=== PATIENT | male | born 1940 | race Caucasian/White ===

== ENCOUNTER → 2017-12-31 | Day surgery (SDC) | payer MEDICARE, MEDICAID ==
[~2017-12-31] MED LIST: Lidocaine 1% PF 5 ML VIAL ONE; Ondansetron ODT 8 MG TAB ONE; PHENYLEPHRINE-NS 100 MCG/ML 10 ML SYRINGE ONE; PROPOFOL 200 MG/20 ML VIAL ONE; Succinylcholine Chloride 20 MG/ML 10 ml SYRINGE FS ONE; Water For Injection,Sterile 20 ML ONE
--- NOTE | 2017-12-31 16:48 | RAD ---
NECK SOFT TISSUE: 12/31/17 HISTORY: Food impaction. COMPARISON: None. FINDINGS: No radiopaque foreign object is appreciated. Degenerative changes of the cervical spine. No acute fra cture or malalignment. Multiple missing teeth. IMPRESSION: No acute abnormality. POS: RODRIGUEZ
--- NOTE | 2017-12-31 22:24 | CON ---
DATE OF CONSULTATION: 12/31/2017 REASON FOR CONSULTATION: Suspected food bolus obstruction of the esophagus. HISTORY OF PRESENT ILLNESS: Mr. Chavira was apparently eating last night at the [facility] where he lives and he got food stuck, he thinks it is squash. He is unable to handle secretions last night, today and was brought to the hospital. In the emergency room, he was given some soda and he would hold it on just for a minute or two and then would come right back up. He continues to cou gh up secretions and spit, it is like cough. He denies any overt pain right now. He states he has h ad problems with dysphagia in the past, but he has not ever had food get stuck. Presently, he denies any pain or shortness of breath, denies pain in his neck or chest. 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 There is a questionable history of bipolar disorder and depression. PAST SURGICAL HISTORY: Includes tonsillectomy, left knee replacement. He also has had an EGD with Ivy Vazquez for dysphagia in 2017, at which time he had a hiatal hernia, empiric dilatation at that time with no effect. Cerebellar shunt in 2001. FAMILY HISTORY: Father with cancer of unknown etiology. MEDICATIONS: Tylenol, vitamin D, Prilosec, VESIcare, Synthroid, metoprolol, desmopressin, multivitam in, pravastatin, Depakote, Zoloft, Remeron and Imodium p.r.n. SOCIAL HISTORY: He lives in [place] in assisted living. His primary physician is Dr. Meneses. ALLERGIES: None known. REVIEW OF SYSTEMS: Negative for fever or chills, shortness of breath, chest pain, dyspnea on exertio n. PHYSICAL EXAMINATION: GENERAL: Mr. Chavira is a pleasant gentleman, in no distress, resting comfortably in stretcher. VITAL SIGNS: Blood pressure 135/70, pulse 97, respirations 16, temperature 97, O2 sat 94%. HEENT: He has slight cough. He has got dentures and that are kind of coming out. Within normal slater its. NECK: Supple. LUNGS: Clear. HEART: Regular rate and rhythm without clicks or murmurs. ABDOMEN: Soft and nontender. Neck, soft tissue film was normal except for degenerative changes and multiple missing teeth. LABORATORY: None. ASSESSMENT: 1. Suspected food bolus of the esophagus with history of dysphagia with prior EGD last year in [facility] with a hiatal hernia, but no stricture. 2. Poor dentition with dentures ill-fitting, this may be part of the reason for his dysphagia. PLAN: EGD, likely with general anesthesia to prevent aspiration and removal of foreign body.
--- NOTE | 2018-01-01 06:51 | OP ---
DATE OF PROCEDURE: 12/31/2017 PROCEDURE PERFORMED: EGD with removal of foreign body. PREPROCEDURE DIAGNOSES: Dysphagia and regurgitation. ANESTHESIA: General endotracheal anesthesia. POSTPROCEDURE DIAGNOSES: 1. Food filled esophagus, proximal half with squash, GE junction with a large meat bolus, all remove d. 2. Severe ulcerations at the distal esophagus, GE junction and hiatal hernia. No signs of perforati on, mild superficial mucosal necrosis. 3. Large hiatal hernia. 4. Z-line appears to be probably in the mid esophagus at about 25 cm, proximal gastric folds at abou t 32 cm, hiatus is about 40 cm. This is suspicious for Shen's. Due to the inflamed nature of the esophagus, biopsies were not obtained. 5. The patient has a permanent denture plate, that is affixed to a tooth, but the remainder was loos e and this is probably the reason he is not chewing his food well. RECOMMENDATIONS: 1. The patient has been on pureed diet with Ensure 3 times a day until he sees a dentist. I would c all the longterm and asked them to get a dentist to see him to fix this. 2. He is to be on a PPI b.i.d. 3. He needs to follow up with Dr. Vazquez, his primary environmental remediation specialist in 1-2 weeks. He may ne ed a repeat endoscopy to evaluate for Shen's and follow that. PROCEDURE IN DETAIL: After the patient was informed of the risks, benefits, possible complications o f endoscopy including perforation, bleeding, reactions to medication and aspiration, informed consent was obtained.. I also discussed the case with his niece whose family members responsible for him, Robert Railissy. She states that he signed his own consent. Once he was comfortably intubated and airway was secured, a bite block was placed in incisural orifice. esophagus. The proximal esophagus was full of material, which was yellow and consistent with a history getting squash stuck. Th is was removed piecemeal of about 30 minutes until we came to the distal esophagus where a large meat bolus was found at the GE junction. This was removed piecemeal and then grabbed with a snare and re moved. There was some pressure necrosis in distal esophagus, thesuperficial mucosa, no signs of perf oration. There was no bleeding, there was a hiatus hernia at 40 cm. The stomach, pylorus and duoden um were normal. There was proximal gastric folds at 30 cm. The Z-line was irregular and at 25 cm, c onsistent with Shen's esophagus. Biopsies were not obtained secondary to moderate amount of infla mmation. The scope was removed. The patient tolerated the procedure well with no complications. Instructions were conveyed to the patient's nurse at his longterm.
== END ==
LOC: ERS 15:20 → SDC 17:54 → ERS 17:55
PROVIDERS: ATTEND Internal Medicine Gastroenterology
PROC: 0DC58ZZ Extirpation of Matter from Esophagus, Via Natural or Artificial Opening Endoscopic (ICD-10-PCS; principal; 2017-12-31)
DX: T18.128A Food in esophagus causing other injury, initial encounter (principal); K22.10 Ulcer of esophagus without bleeding; K44.9 Diaphragmatic hernia without obstruction or gangrene; K21.9 Gastro-esophageal reflux disease without esophagitis; K08.59 Other unsatisfactory restoration of tooth; E78.5 Hyperlipidemia, unspecified; E23.2 Diabetes insipidus; E03.9 Hypothyroidism, unspecified; I10 Essential (primary) hypertension; Z79.899 Other long term (current) drug therapy; Z98.890 Other specified postprocedural states
CPT/HCPCS: 43247; 70360; J1610; J2001; J2704

== ENCOUNTER 2018-01-07 13:13 | Emergency (ER) | payer MEDICARE, MEDICAID | END 2018-01-07 15:18 | disposition home or self-care (01) | LOC: ERS 13:13 | DX: K22.2 Esophageal obstruction (principal); K21.9 Gastro-esophageal reflux disease without esophagitis; E03.9 Hypothyroidism, unspecified; E78.5 Hyperlipidemia, unspecified; I10 Essential (primary) hypertension; F31.9 Bipolar disorder, unspecified; Z79.899 Other long term (current) drug therapy | CPT/HCPCS: 96374; 99284; J1610 ==

== ENCOUNTER 2018-02-03 10:31 | Day surgery (SDC) | payer MEDICARE, MEDICAID ==
[2018-02-02 13:04] VITALS: BMI 27.2
--- NOTE | 2018-02-03 02:14 | HP ---
SHORT STAY HISTORY AND PHYSICAL DATE OF ADMISSION: 02/03/2018 HISTORY OF PRESENT ILLNESS: This is a 77-year-old male who comes for an EGD. The patient was seen dysphagia, underwent EGD and empiric dilation. The EGD, there was no esophageal stric ture seen. However, he underwent empiric dilation with Rockwell dilator. The patient was brought to the ER on 12/31/2017 because of food bolus impaction. Dr. Amador saw the patient and underwent EGD a nd disimpaction of food material. The patient advised to have an EGD because of recent food impactio n. The patient will come for an EGD because of above reason. ALLERGIES: ASPIRIN. MEDICAL ILLNESSES: 1. Hypothyroidism. 2. Hypertension. 3. Hyperlipidemia. 4. Acid reflux. 5. Depression. PHYSICAL EXAMINATION: GENERAL: He is a fragile looking, elderly male, appears very comfortable. VITAL SIGNS: Pulse is 70, blood pressure 130/70. HEENT: Conjunctivae clear. CARDIOVASCULAR SYSTEM: First and second heart sounds are normal. LUNGS: Clear to auscultation. ABDOMEN: Soft to palpate. No organomegaly. No tenderness. No masses. ADMITTING DIAGNOSIS: A 77-year-old male with recent food impaction. The patient comes for an EGD.
--- NOTE | 2018-02-03 12:55 | OP ---
DATE OF PROCEDURE: 02/03/2018 SURGEON: Bobby Vazquez M.D. OPERATIVE PROCEDURE: 1. Esophagogastroduodenoscopy. 2. Serial dilation with Rockwell sizes 48 and 50-Pakistani in diameter. PREOPERATIVE DIAGNOSES: Dysphagia, recent foreign body impaction. POSTOPERATIVE DIAGNOSES: 1. Normal esophageal mucosa and no esophagitis seen. 2. Hiatus hernia. 3. No esophageal stricture seen, although he has had recent food impaction. 4. Small ulcer in the gastric antrum. PROCEDURE IN DETAIL: The patient was placed on his left lateral position and was given sedation by [facility]. A Pentax video gastroscope under direct vision was passed down the orophar ynx, past the GE junction, into the stomach and subsequently into descending duodenum. He had fairly good amount of mucous, this was suctioned. He also had some mucus in the esophagus, upper esophagus . This was suctioned. The patient has recent food impaction, at endoscopy the mucosa appears normal and also I do not see any definite stricture. The scope advances into the esophagus, no lesion seen . He has a hiatus hernia. Retroflexion failed to show any pathology in the fundus or cardia. The g astric body, no pathology seen. He has small gastric ulcers over the gastric antrum. The duodenal b ulb, descending duodenum, no pathology seen. The scope removed. Because of history of recent food i mpaction a size 48 Pakistani Rockwell dilator passed down with no resistance. Subsequently, a 50 Pakistani was passed down with no resistance. The patient rescoped again and he had fairly large amount of muc us in the throat, this was suctioned. No complications noted. DISCHARGE PLANNING: This is a 77-year-old male with recent food impaction who came in for an EGD. The EGD showed hiatus hernia, but no definite narrowing seen. DISCHARGE RECOMMENDATIONS: 1. Resume medicines as before. 2. Diet as tolerated. 3. He will come back to the clinic in 2 weeks.
[2018-02-03] MEDS ORDERED: PROPOFOL 200 MG/20 ML VIAL ONE (13:39)
[2018-02-03] MEDS ORDERED: Lidocaine 1% PF 5 ML VIAL ONE (13:39)
== END 2018-02-03 14:00 | disposition home or self-care (01) ==
LOC: EEVIPCON → SDC 10:31
PROVIDERS: ATTEND Internal Medicine Gastroenterology
PROC: 0DJ08ZZ Inspection of Upper Intestinal Tract, Via Natural or Artificial Opening Endoscopic (ICD-10-PCS; principal; 2018-02-03)
PROC: 0D737ZZ Dilation of Lower Esophagus, Via Natural or Artificial Opening (ICD-10-PCS; 2018-02-03)
DX: K25.9 Gastric ulcer, unspecified as acute or chronic, without hemorrhage or perforation (principal); K44.9 Diaphragmatic hernia without obstruction or gangrene; E03.9 Hypothyroidism, unspecified; I10 Essential (primary) hypertension; E78.5 Hyperlipidemia, unspecified; K21.9 Gastro-esophageal reflux disease without esophagitis; F32.9 Major depressive disorder, single episode, unspecified; Z88.6 Allergy status to analgesic agent

== ENCOUNTER 2021-04-22 05:54 | Inpatient (IN) | payer MEDICARE, MEDICAID ==
[2021-04-22] MEDS ORDERED: Pantoprazole 40 MG VIAL ONE (06:37)
[2021-04-22 06:38] LABS: INR-International Normal Ratio 1.1; Prothrombin Time 14.3 sec (12.0-14.7)
[2021-04-22 06:39] LABS: PTT 30.1 sec (22.9-36.1)
[2021-04-22 06:44] LABS: #Eosinphils 0.3 thou/uL (0.0-0.7); #Lymphocytes 2.3 thou/uL (1.20-3.40); #Monocytes 1.1 thou/uL (0.11-0.59); #Neutrophils 6.1 thou/uL (1.40-6.50); %Basophils 0.3 % (0.0-1.0); %Eosinophils 3.1 % (0.0-10.0); %Lymphocytes 23.7 % (21.0-51.0); %Monocytes 10.8 % (0.0-10.0); %Neutrophils 62.2 % (42.0-75.0); ALT (SGPT) 12 U/L (8-55); AST (SGOT) 21 U/L (5-34); Albumin 3.1 g/dL (3.4-4.8); Alkaline Phosphatase 86 U/L (40-110); Anion Gap 17 mmol/L (10-20); BUN (Urea Nitrogen) 56 mg/dL (8.4-25.7); Bilirubin, Total 0.3 mg/dL (0.2-1.2); Calc. Creatinine Clearance 0 mL/min (70-130); Calcium 9.7 mg/dL (7.8-10.44); Carbon Dioxide 22 mmol/L (23-31); Chloride 116 mmol/L (98-107); Globulin 4.2 g/dL (2.4-3.5); Glucose 99 mg/dL (83-110); Hemoglobin 10.6 g/dL (14.0-18.0); Mean Corpuscular HGB CONC 31.5 g/dL (32.0-36.0); Mean Corpuscular Hemoglobin 33.2 pg (27.0-31.0); Mean Platelet Volume 7.8 fL (7.4-10.4); Platelet Count 138 thou/uL (130-400); Potassium 4.6 mmol/L (3.5-5.1); Protein, Total 7.3 g/dL (5.8-8.1); RBC Distribution Width 13.3 % (11.5-14.5); Red Blood Cell (RBC) Count 3.19 mill/uL (4.70-6.10); Sodium 150 mmol/L (136-145); White Blood Cell (WBC) Count 9.8 thou/uL (4.8-10.8)
[2021-04-22 07:16] LABS: CKMB 2.3 ng/mL (0-6.6)
[2021-04-22] MEDS ORDERED: Lactated Ringer's 1,000 ML IV SCH ×2 (09:00→19:00)
[2021-04-22 14:45] LABS: Anion Gap 12 mmol/L (10-20); BUN (Urea Nitrogen) 48 mg/dL (8.4-25.7); Calc. Creatinine Clearance 0 mL/min (70-130); Calcium 8.9 mg/dL (7.8-10.44); Carbon Dioxide 23 mmol/L (23-31); Chloride 121 mmol/L (98-107); Glucose 79 mg/dL (83-110); Potassium 5.1 mmol/L (3.5-5.1); Sodium 151 mmol/L (136-145)
[2021-04-22] MEDS ORDERED: GoLYTELY 4,000 ml Bottle PO SCH (15:15)
[2021-04-22 16:45] VITALS: BMI 20.9
[2021-04-22] MEDS: Pantoprazole 80 MG, Admixture Fee 1 EACH in Sodium Chloride 0.9% 100 ML IVPB SCH (17:45)
[2021-04-22 18:57] LABS: Bacteria/HPF None Seen HPF (None Seen); Bilirubin Negative (Negative); Blood, Urine 2+ (Negative); Clarity Extra Turbid (Clear); Glucose, Urine (Dipstick) Normal (Negative); Ketone, Urine Negative (Negative); Leukocyte 500 Leu/uL (Negative); Nitrite Negative (Negative); Protein, Urine (Dipstick) 300 mg/dL (Neg-Trace); Specific Gravity, Urine 1.008 (1.002-1.036); Squamous Epithelial None Seen HPF (0-3); Urobilinogen Normal mg/dL (Less than 2); WBC/HPF Greater than 50 HPF (0-3)
[2021-04-22 19:02] LABS: Urine Culture Reflex Yes Yes
[2021-04-22 20:26] LABS: Hemoglobin 10.2 g/dL (14.0-18.0)
[2021-04-22 20:44] LABS: Anion Gap 16 mmol/L (10-20); BUN (Urea Nitrogen) 48 mg/dL (8.4-25.7); Calc. Creatinine Clearance 20 mL/min (70-130); Calcium 8.5 mg/dL (7.8-10.44); Carbon Dioxide 20 mmol/L (23-31); Chloride 122 mmol/L (98-107); Glucose 77 mg/dL (83-110); Potassium 4.5 mmol/L (3.5-5.1); Sodium 153 mmol/L (136-145)
[2021-04-22] MEDS ORDERED: Simvastatin 5 MG TAB PO SCH (21:00)
[2021-04-22] MEDS: Dextrose 5% in Water 1,000 ML IV SCH (21:42)
[2021-04-23 01:46] LABS: SARS-CoV-2 PCR by NAA Not Detected (NotDetected)
[2021-04-23] MEDS: Pantoprazole 80 MG, Admixture Fee 1 EACH in Sodium Chloride 0.9% 100 ML IVPB SCH (03:29)
[2021-04-23 04:31] LABS: Anion Gap 13 mmol/L (10-20); BUN (Urea Nitrogen) 46 mg/dL (8.4-25.7); Calc. Creatinine Clearance 21 mL/min (70-130); Calcium 8.8 mg/dL (7.8-10.44); Carbon Dioxide 23 mmol/L (23-31); Chloride 119 mmol/L (98-107); Glucose 93 mg/dL (83-110); Potassium 4.3 mmol/L (3.5-5.1); Sodium 151 mmol/L (136-145)
[2021-04-23 05:41] LABS: #Basophils 0.1 thou/uL (0.0-0.2); #Eosinphils 0.1 thou/uL (0.0-0.7); #Lymphocytes 1.6 thou/uL (1.20-3.40); #Monocytes 0.7 thou/uL (0.11-0.59); #Neutrophils 3.9 thou/uL (1.40-6.50); %Basophils 1.1 % (0.0-1.0); %Eosinophils 1.2 % (0.0-10.0); %Lymphocytes 24.4 % (21.0-51.0); %Monocytes 11.7 % (0.0-10.0); %Neutrophils 61.6 % (42.0-75.0); Hemoglobin 9.9 g/dL (14.0-18.0); Mean Corpuscular HGB CONC 33.2 g/dL (32.0-36.0); Mean Corpuscular Hemoglobin 33.3 pg (27.0-31.0); Platelet Count 106 thou/uL (130-400); Platelet Morphology Comment Appears Decreased; RBC Distribution Width 14.7 % (11.5-14.5); Red Blood Cell (RBC) Count 2.97 mill/uL (4.70-6.10); White Blood Cell (WBC) Count 6.4 thou/uL (4.8-10.8)
[2021-04-23] MEDS ORDERED: Levothyroxine Sodium 88 MCG TAB PO SCH (06:00)
[2021-04-23 06:43] LABS: SARS-CoV-2 NAA Rapid Test Not Detected (NotDetected)
[2021-04-23] MEDS ORDERED: Mirtazapine 30 MG TAB PO SCH (09:00)
[2021-04-23] MEDS ORDERED: Non-Formulary Item 1 EACH (Cholecalciferol (Vitamin D3) [Vitamin D3] 50,000 UNIT Capsule) PO SCH (09:00)
[2021-04-23] MEDS ORDERED: Ergocalciferol 1.25 MG(50,000 UNITS) CAP PO SCH (09:00)
[2021-04-23] MEDS ORDERED: Trospium 20 MG TAB PO SCH (09:00)
[2021-04-23] MEDS ORDERED: Multivitamin W/ Minerals 1 TAB PO SCH (09:00)
[2021-04-23] MEDS ORDERED: Glycopyrrolate 0.2 MG/ML 5 ML SYRINGE ONE (10:10)
[2021-04-23] MEDS ORDERED: Lidocaine 1% PF 5 ML VIAL ONE (10:10)
[2021-04-23] MEDS ORDERED: PROPOFOL 200 MG/20 ML VIAL ONE (10:10)
[2021-04-23] MEDS ORDERED: PHENYLEPHRINE-NS 100 MCG/ML 10 ML SYRINGE ONE (10:10)
[2021-04-23] MEDS ORDERED: Ondansetron HCl/PF 4 MG/2 ML Vial IVP PRN (10:23)
[2021-04-23] MEDS ORDERED: Promethazine HCl 25 MG/ML VIAL IVPB PRN (10:23)
[2021-04-23] MEDS ORDERED: Promethazine HCl 25 MG/ML VIAL IM PRN (10:23)
[2021-04-23] MEDS: Dextrose 5% in Water 1,000 ML IV SCH (11:24)
[2021-04-23 13:40] LABS: Anion Gap 12 mmol/L (10-20); BUN (Urea Nitrogen) 36 mg/dL (8.4-25.7); Calc. Creatinine Clearance 24 mL/min (70-130); Carbon Dioxide 25 mmol/L (23-31); Chloride 118 mmol/L (98-107); Glucose 93 mg/dL (83-110); Potassium 3.8 mmol/L (3.5-5.1); Sodium 151 mmol/L (136-145)
[2021-04-23] MEDS ORDERED: cefTRIAXone\\ROCEPHIN 1 GM in Sodium Chloride 0.9% 100 ML IVPB SCH ×2 (14:00→17:00)
[2021-04-23 15:15] LABS: RBC Folate Test Component 1459 ng/mL (>498)
[2021-04-23 16:23] VITALS: BP 133/86; TEMP 98.9
[2021-04-23] MEDS ORDERED: Desmopressin 0.2 mg Tablet PO SCH (21:00)
[2021-04-23] MEDS ORDERED: Docusate 100 MG CAP PO SCH (21:00)
== END 2021-04-23 18:30 | DRG 920 ==
LOC: ERS 05:54 → ERHOLD 07:41 → IMCU/EMU 17:17 → 2NO 04-23 12:12
PROVIDERS: ADMIT Student in an Organized Health Care Education/Training Program; ATTEND Student in an Organized Health Care Education/Training Program
PROC: 0DBP8ZX Excision of Rectum, Via Natural or Artificial Opening Endoscopic, Diagnostic (ICD-10-PCS; principal; 2021-04-23)
PROC: 0DBK8ZX Excision of Ascending Colon, Via Natural or Artificial Opening Endoscopic, Diagnostic (ICD-10-PCS; 2021-04-23)
PROC: 0DBN8ZX Excision of Sigmoid Colon, Via Natural or Artificial Opening Endoscopic, Diagnostic (ICD-10-PCS; 2021-04-23)
PROC: 0DBM8ZX Excision of Descending Colon, Via Natural or Artificial Opening Endoscopic, Diagnostic (ICD-10-PCS; 2021-04-23)
DX: K91.840 Postprocedural hemorrhage of a digestive system organ or structure following a digestive system procedure (principal); E23.2 Diabetes insipidus; E87.0 Hyperosmolality and hypernatremia; K62.6 Ulcer of anus and rectum; N17.9 Acute kidney failure, unspecified; N39.0 Urinary tract infection, site not specified; Z20.822 Contact with and (suspected) exposure to COVID-19; K21.9 Gastro-esophageal reflux disease without esophagitis; E03.9 Hypothyroidism, unspecified; E78.5 Hyperlipidemia, unspecified; I12.9 Hypertensive chronic kidney disease with stage 1 through stage 4 chronic kidney disease, or unspecified chronic kidney disease; N32.81 Overactive bladder; C61 Malignant neoplasm of prostate; F31.9 Bipolar disorder, unspecified; R13.10 Dysphagia, unspecified; G93.0 Cerebral cysts; N18.30 Chronic kidney disease, stage 3 unspecified; G40.909 Epilepsy, unspecified, not intractable, without status epilepticus; F79 Unspecified intellectual disabilities; D63.1 Anemia in chronic kidney disease; I95.9 Hypotension, unspecified; E86.0 Dehydration; E86.1 Hypovolemia; K63.5 Polyp of colon; Z88.8 Allergy status to other drugs, medicaments and biological substances; Z79.890 Hormone replacement therapy; Z79.899 Other long term (current) drug therapy; Y83.9 Surgical procedure, unspecified as the cause of abnormal reaction of the patient, or of later complication, without mention of misadventure at the time of the procedure
CPT/HCPCS: 36415; 36430; 71045; 74176; 80048; 80053; 81001; 82553; 82607; 82747; 84484; 85025; 85610; 85730; 86850; 86900; 86901; 87077; 87086; 87186; 88305; 93005; 96365; 96366; 96376; C9113; J2597; J2704; J3490; J7070; J7120; P9016; U0002; U0003; U0005